=== PATIENT | female | born 1975 | race Caucasian/White ===

== ENCOUNTER 2017-09-08 14:48 | Emergency (ER) | payer OTHER ==
[2017-09-08 15:17] LABS: HCG,QUAL RESULT NEGATIVE (NEGATIVE)
[2017-09-08 15:29] LABS: BILIRUBIN,URINE Negative (NEGATIVE); COLOR,URINE Yellow (YELLOW); GLUCOSE, URINE (UA) >=1000 mg/dL (NEGATIVE); KETONES,URINE Negative (NEGATIVE); LEUKOCYTE ESTERASE ,URINE Negative (NEGATIVE); NITRATE,URINE Negative (NEGATIVE); OCCULT BLOOD,URINE Nonhemolyzed Trace (NEGATIVE); PROTEIN,URINE Negative (NEGATIVE); UROBILINOGEN,URINE 0.2 mg/dL (0.2-1.0)
[2017-09-08 15:30] LABS: APPEARANCE,URINE SLIGHTLY CLOUDY (CLEAR)
[2017-09-08 15:45] LABS: BACTERIA,URINE Few /HPF (None Seen); RBC,URINE 0-1 /HPF (0-1); WBC,URINE 0-1 /HPF (0-1)
== END 2017-09-08 16:23 | disposition home or self-care (01) ==
LOC: EDH 14:48
DX: I88.0 Nonspecific mesenteric lymphadenitis (principal); E11.9 Type 2 diabetes mellitus without complications; Z79.4 Long term (current) use of insulin
CPT/HCPCS: 74176; 81001; 81025

== ENCOUNTER 2020-05-31 13:02 | Inpatient (IN) | payer BC, OTHER ==
[~2020-05-31] VITALS: Ht 170.2 cm; Wt 108.9 kg
[2020-05-31] MEDS ORDERED: CEFTRIAXONE SODIUM 1 GM ONE (13:43)
[2020-05-31 13:48] LABS: BASOPHILS % (AUTO) 0.6 % (0.0-5.0); EOSINOPHILS % (AUTO) 0.3 % (0.0-8.0); HEMATOCRIT 34.2 % (36-48); MEAN CORPUSCULAR HEMOGLOBIN 26.7 pg (27.0-33.0); MEAN CORPUSCULAR HGB CONC 32.5 g/dL (32.0-36.0); MEAN CORPUSCULAR VOLUME 82.4 fL (79-99); MONOCYTES % (AUTO) 4.7 % (3.0-13.0); NEUTROPHILS % (AUTO) 82.8 % (40.0-77.0); PLATELET COUNT (AUTO) 373 K/uL (130-400); RED BLOOD CELL COUNT(AUTO) 4.15 MIL/uL (4.00-5.50); RED CELL DISTRIBUTION WIDTH 13.9 % (11.0-15.5)
[2020-05-31 13:53] LABS: INR 0.9 (0.85-1.15); PARTIAL THROMBOPLASTIN TIME 28.8 SEC (26.3-35.5); PROTHROMBIN TIME 9.8 SEC (9.6-11.6)
[2020-05-31 13:57] LABS: ALBUMIN 3.3 g/dL (3.5-5.0); BILIRUBIN,TOTAL 0.6 mg/dL (0.2-1.0); POTASSIUM 4.2 mmol/L (3.5-5.1); TOTAL PROTEIN, SERUM 7.4 g/dL (6.0-8.3)
[2020-05-31 14:06] LABS: APPEARANCE,URINE Clear (CLEAR); BILIRUBIN,URINE Negative (NEGATIVE); COLOR,URINE Yellow (YELLOW); GLUCOSE, URINE (UA) >=1000 mg/dL (NEGATIVE); HCG,QUAL RESULT NEGATIVE (NEGATIVE); KETONES,URINE 40 mg/dL (NEGATIVE); LEUKOCYTE ESTERASE ,URINE Negative (NEGATIVE); NITRATE,URINE Negative (NEGATIVE); OCCULT BLOOD,URINE Trace (NEGATIVE); PH,URINE 5.5 (5.0-8.0); PROTEIN,URINE POS 2+ mg/dL (NEGATIVE)
[2020-05-31 14:21] LABS: CRP QUANTITATIVE 270.6 mg/L (0.00-9.0)
[2020-05-31 14:26] LABS: BACTERIA,URINE Few /HPF (None Seen); RBC,URINE None Seen /HPF (0-1)
[2020-05-31 14:59] LABS: ERYTHROCYTE SEDIMENTATION RATE 83 MM/HR (0-20)
[2020-05-31] MEDS ORDERED: ONDANSETRON HCL 4 MG/2 ML VIAL ONE (16:24)
[2020-05-31] MEDS ORDERED: ZOSYN 3.375GM+NS 50ML 50 ML IV ONE (16:37)
[2020-05-31] MEDS ORDERED: HYDROMORPHONE HCL 0.5 MG/0.5 ML ML IVP PRN (19:15)
[2020-05-31 20:00] VITALS: BP 127/69
--- NOTE | 2020-05-31 20:20 | NUR ---
DR. LANTIGUA ROUNDED: Seen and examined pt with orders.
[2020-05-31] MEDS: ZOSYN 3.375GM+NS 50ML 50 ML IV SCH (21:35)
[2020-05-31] MEDS: INSULIN R PO SS1 SQ SCH (21:36)
[2020-05-31] MEDS ORDERED: VANCOMYCIN PROTOCOL PER PHARMACY IV SCH (22:45)
[2020-05-31] MEDS ORDERED: VANCOMYCIN 1GM+NS 250ML 250 ML IV SCH (22:45)
[2020-05-31] MEDS ORDERED: VANCOMYCIN 1GM+NS 250ML 250 ML IV ONE (23:04)
[2020-06-01] VITALS: BP 139/86
[2020-06-01 04:00] VITALS: BP 113/47
[2020-06-01] MEDS: ZOSYN 3.375GM+NS 50ML 50 ML IV SCH ×3 (05:30→20:07)
[2020-06-01 06:07] LABS: BASOPHILS % (AUTO) 0.7 % (0.0-5.0); EOSINOPHILS % (AUTO) 1.4 % (0.0-8.0); HEMATOCRIT 31.2 % (36-48); LYMPHOCYTES % (AUTO) 15.6 % (21.0-51.0); MEAN CORPUSCULAR HEMOGLOBIN 26.7 pg (27.0-33.0); MEAN CORPUSCULAR HGB CONC 32.1 g/dL (32.0-36.0); MEAN CORPUSCULAR VOLUME 83.2 fL (79-99); MONOCYTES % (AUTO) 6.4 % (3.0-13.0); NEUTROPHILS % (AUTO) 75.4 % (40.0-77.0); PLATELET COUNT (AUTO) 351 K/uL (130-400); RED BLOOD CELL COUNT(AUTO) 3.75 MIL/uL (4.00-5.50); RED CELL DISTRIBUTION WIDTH 14.1 % (11.0-15.5); WHITE BLOOD COUNT (AUTO) 11.7 K/uL (4.8-10.8)
[2020-06-01] MEDS: INSULIN R PO SS1 SQ SCH ×4 (06:27→20:01)
[2020-06-01] MEDS ORDERED: COMPOUND IV REFRIGERATED 1 EACH IVSOLN MISC PRN (06:30)
[2020-06-01 06:36] LABS: ALBUMIN 2.8 g/dL (3.5-5.0); BILIRUBIN,TOTAL 0.3 mg/dL (0.2-1.0); CREATININE 0.8 mg/dL (0.5-1.5); POTASSIUM 3.7 mmol/L (3.5-5.1)
--- NOTE | 2020-06-01 07:40 | NUR ---
DR. VALENTINE ROUNDED: Visited and talked to patient. Informed the automobile and property underwriter to cancel Infectious Disease consult. Dr. Ding has to talk to Dr. Valentine for any consult.
[2020-06-01] MEDS ORDERED: ONDANSETRON HCL 4 MG/2 ML VIAL IVP PRN (07:45)
[2020-06-01 08:00] VITALS: BP 151/78
[2020-06-01] MEDS: ENOXAPARIN SODIUM 40 MG/0.4 ML SYRINGE SQ SCH (09:05)
[2020-06-01] MEDS: VANCOMYCIN 1.25 GM in SODIUM CHLORIDE 0.9% 250 ML IV SCH ×2 (09:18→20:08)
[2020-06-01 12:00] VITALS: BP 122/65
[2020-06-01 16:00] VITALS: BP 135/85
--- NOTE | 2020-06-01 18:24 | NUR ---
cm note met with patient and states resides at home with spouse, independent with adls and ambulation, no dme. no home services, pt works inspector timers. states no dc needs. dc plan is home. Addendum: 06/01/20 at 1828 by MADISON CAT CM Amended: Links added.
--- NOTE | 2020-06-01 20:00 | NUR ---
paged doctor jose j about patient's mri results of right foot. pending call back
[2020-06-01 20:18] VITALS: BP 123/60
[2020-06-01] MEDS ORDERED: ACETAMINOPHEN 325 MG TAB ONE (20:37)
[2020-06-01] MEDS: ACETAMINOPHEN 325 MG TAB PO PRN (20:41)
--- NOTE | 2020-06-01 21:40 | NUR ---
doctor lux at the bedside speaking with the patient about the MRI results.
[2020-06-02] VITALS (18 sets, daily range): BP systolic 109–173; BP diastolic 59–94
[2020-06-02] MEDS: ZOSYN 3.375GM+NS 50ML 50 ML IV SCH ×3 (04:21→19:45)
[2020-06-02] MEDS: INSULIN R PO SS1 SQ SCH ×5 (05:50→21:58)
[2020-06-02] MEDS: ENOXAPARIN SODIUM 40 MG/0.4 ML SYRINGE SQ SCH (09:00)
[2020-06-02] MEDS: VANCOMYCIN 1.5 GM in SODIUM CHLORIDE 0.9% 250 ML IV SCH ×2 (10:35→19:46)
[2020-06-02] MEDS ORDERED: BUPIVACAINE/PF 0.5% 30ML VIAL ONE (13:47)
[2020-06-02] MEDS ORDERED: LIDOCAINE HCL 1% 20 ML VIAL ONE (13:47)
[2020-06-02] MEDS ORDERED: LIDOCAINE PF 2% 5ML ABBOJECT ONE (14:02)
[2020-06-02] MEDS ORDERED: DEXAMETHASONE SOD PHOSPHATE 10MG/ML 1ML VIAL ONE (14:02)
[2020-06-02] MEDS ORDERED: PROPOFOL 10 MG/ML 20ML VIAL IV ONE (14:03)
[2020-06-02] MEDS ORDERED: FENTANYL CITRATE PF 50 MCG/1 ML 2ML VIAL ONE (14:03)
[2020-06-02] MEDS ORDERED: ONDANSETRON HCL 4 MG/2 ML VIAL ONE (14:03)
[2020-06-02] MEDS ORDERED: MIDAZOLAM HCL 1 MG/ML 2ML VIAL ONE (14:03)
--- NOTE | 2020-06-02 17:00 | NUR ---
PT BACK IN ROOM FROM PROCEDURE RT 2ND TOE AMPUTATION COMPLETED BY DR LANTIGUA. PT IS AWAKE ALERT AND ORIENTED X 3. VITALS STABLE. STATES HAVING SLIGHT DISCOMFORT. PT IS IN BED WITH SIDE RAILS UP X3 CALL LIGHT IN REACH. WILL CONTINUE TO MONITOR PT. AT BEDSIDE.
[2020-06-02] MEDS ORDERED: MORPHINE SULFATE 2 MG/ML 1ML SYG IVP PRN (18:15)
[2020-06-02] MEDS ORDERED: HYDROMORPHONE 1 MG/1 ML AMP IVP PRN (18:15)
[2020-06-02] MEDS: ACETAMINOPHEN 325 MG TAB PO PRN (19:46)
[2020-06-03 00:31] VITALS: BP 153/78
[2020-06-03] MEDS: ZOSYN 3.375GM+NS 50ML 50 ML IV SCH ×3 (03:55→20:04)
[2020-06-03] MEDS: ACETAMINOPHEN 325 MG TAB PO PRN ×2 (03:55→09:46)
[2020-06-03 04:02] VITALS: BP 141/75
[2020-06-03] MEDS: INSULIN R PO SS1 SQ SCH ×4 (05:18→20:48)
[2020-06-03 07:30] VITALS: BP 151/71
[2020-06-03] MEDS: VANCOMYCIN 1.5 GM in SODIUM CHLORIDE 0.9% 250 ML IV SCH ×2 (09:45→22:09)
[2020-06-03] MEDS: ENOXAPARIN SODIUM 40 MG/0.4 ML SYRINGE SQ SCH (09:45)
[2020-06-03 09:47] LABS: BASOPHILS % (AUTO) 0.8 % (0.0-5.0); EOSINOPHILS % (AUTO) 1.1 % (0.0-8.0); HEMATOCRIT 33.3 % (36-48); MEAN CORPUSCULAR HEMOGLOBIN 26.2 pg (27.0-33.0); MEAN CORPUSCULAR HGB CONC 31.2 g/dL (32.0-36.0); MEAN CORPUSCULAR VOLUME 83.9 fL (79-99); MONOCYTES % (AUTO) 6.1 % (3.0-13.0); NEUTROPHILS % (AUTO) 77.3 % (40.0-77.0); PLATELET COUNT (AUTO) 380 K/uL (130-400); RED BLOOD CELL COUNT(AUTO) 3.97 MIL/uL (4.00-5.50); RED CELL DISTRIBUTION WIDTH 14.1 % (11.0-15.5); WHITE BLOOD COUNT (AUTO) 9.2 K/uL (4.8-10.8)
[2020-06-03 09:55] LABS: CREATININE 0.9 mg/dL (0.5-1.5); POTASSIUM 4.1 mmol/L (3.5-5.1)
[2020-06-03 11:00] VITALS: BP 122/61
[2020-06-03] MEDS ORDERED: INSU500I SQ (15:24)
[2020-06-03] MEDS ORDERED: LORA0.5P MC (15:26)
[2020-06-03] MEDS ORDERED: BUSP10TA3 PO (15:29)
[2020-06-03 16:00] VITALS: BP 137/69
[2020-06-03 20:00] VITALS: BP 132/78
--- NOTE | 2020-06-03 20:00 | NUR ---
ASSESSMENT AND TEACHING PATIENT AWAKE, ALERT, OX3, NO SOB, NO C/O PAIN AT THIS TIME, DRESSING RIGHT FOOT INTACT, TEACH PATIENT IMPORTANCE OF HGAIC, MEDICATION REGIMEN, FOOT CARE AND FOLLOW UP APPOINTMENTS WITH PCP , PATIENT VERBALIZES UNDERSTANDING VIA TEACH BACK
[2020-06-04] VITALS: BP 117/55
[2020-06-04 04:00] VITALS: BP 128/61
[2020-06-04] MEDS: ZOSYN 3.375GM+NS 50ML 50 ML IV SCH ×2 (04:44→13:47)
[2020-06-04 05:02] LABS: BASOPHILS % (AUTO) 0.7 % (0.0-5.0); EOSINOPHILS % (AUTO) 1.5 % (0.0-8.0); HEMATOCRIT 30.4 % (36-48); LYMPHOCYTES % (AUTO) 24.6 % (21.0-51.0); MEAN CORPUSCULAR HGB CONC 31.3 g/dL (32.0-36.0); MEAN CORPUSCULAR VOLUME 83.3 fL (79-99); MONOCYTES % (AUTO) 5.9 % (3.0-13.0); NEUTROPHILS % (AUTO) 66.1 % (40.0-77.0); PLATELET COUNT (AUTO) 298 K/uL (130-400); RED BLOOD CELL COUNT(AUTO) 3.65 MIL/uL (4.00-5.50); RED CELL DISTRIBUTION WIDTH 13.9 % (11.0-15.5); WHITE BLOOD COUNT (AUTO) 8.2 K/uL (4.8-10.8)
[2020-06-04 05:29] LABS: ALBUMIN 2.5 g/dL (3.5-5.0); BILIRUBIN,TOTAL 0.2 mg/dL (0.2-1.0); POTASSIUM 3.8 mmol/L (3.5-5.1); TOTAL PROTEIN, SERUM 6.7 g/dL (6.0-8.3)
[2020-06-04] MEDS: VANCOMYCIN 1GM+NS 250ML 250 ML IV SCH ×2 (05:58→13:47)
[2020-06-04] MEDS: INSULIN R PO SS1 SQ SCH ×2 (06:31→12:56)
[2020-06-04 08:04] VITALS: BP 161/85
[2020-06-04] MEDS: ENOXAPARIN SODIUM 40 MG/0.4 ML SYRINGE SQ SCH (08:55)
[2020-06-04] MEDS: ACETAMINOPHEN 325 MG TAB PO PRN (08:57)
[2020-06-04] MEDS ORDERED: AMOX-429 PO (09:29)
[2020-06-04 11:30] VITALS: BP 138/69
--- NOTE | 2020-06-04 12:00 | NUR ---
CM Note: [employer] pending approval CM met with pt in room, discussed MD recommendations for woundcare, pt agreeable, [facility] signed for [facility]. Faxed order and clinicals, confirmation received. Spoke to Ethel, aware dcp today, will check benefits. Pt pending approval. Primary nurse Jimmy WATKINS aware. CM to continue to follow up.
--- NOTE | 2020-06-04 14:31 | NUR ---
CM Note: [facility] not in network, pt denied; pending Dr Waldrop HH recs. CM spoke to Ethel w/ , verbalized check insurance currently not in network w/them, unable to take pt. Charge nurse Armando WATKINS made aware, will inform Dr Waldrop via secured text. Pt agreeable w/ HH recommendations. Will await MD response. CM to continue to follow up.
--- NOTE | 2020-06-04 15:45 | NUR ---
CM Note: [facility] pending approval As per Armando WATKINSrn hemodialysis charge nurse Dr Waldrop agreeable for [facility]. Faxed order and clinicals to [facility], confirmation received. Spoke to onel Rivers today, pending approval. Primary nurse Jimmy WATKINS aware. CM to continue to follow up.
--- NOTE | 2020-06-04 16:06 | NUR ---
CM Note: [facility] approval CM spoke to Tita w/[facility], pt has approval, will schedule appointment w/pt for tomorrow. Primary nurse Jimmy WATKINS aware, to give report to [facility] once pt ready to DC. Pt safe to dc via private car. CM to continue to follow up.
--- NOTE | 2020-06-04 16:34 | NUR ---
PT REVIEWED AND UNDERSTOOD DISCHARGE INSTRUCTIONS,
--- NOTE | 2020-06-04 16:43 | NUR ---
REPORT GIVEN TO [facility]. PT DISCHARGED IN GOOD CONDITION WITH NO C/O PAIN OR RESP DIFFICULTY BY W/C ACCOMPANIED BY STAFF AND FAMILY Addendum: 06/04/20 at 1645 by ZIA GOMEZ RN RN IV'S REMOVED W/O DIFFICULTY OR COMPLICATIONS
== END 2020-06-04 16:50 | disposition home health service (06) | DRG 616 ==
LOC: EDH 13:02 → OBSVTOIN 15:45 → EDHIP 15:45 → 3CH 18:36
PROVIDERS: ADMIT Internal Medicine; ATTEND Internal Medicine
PROC: 0JBQ0ZZ Excision of Right Foot Subcutaneous Tissue and Fascia, Open Approach (ICD-10-PCS; principal; 2020-05-31)
PROC: 0Y6M0ZB Detachment at Right Foot, Partial 2nd Ray, Open Approach (ICD-10-PCS; 2020-06-02)
DX: E11.69 Type 2 diabetes mellitus with other specified complication (principal); M72.6 Necrotizing fasciitis; L03.115 Cellulitis of right lower limb; L02.611 Cutaneous abscess of right foot; M86.8X7 Other osteomyelitis, ankle and foot; E11.621 Type 2 diabetes mellitus with foot ulcer; L97.519 Non-pressure chronic ulcer of other part of right foot with unspecified severity; F32.9 Major depressive disorder, single episode, unspecified; I10 Essential (primary) hypertension; E78.5 Hyperlipidemia, unspecified; L03.031 Cellulitis of right toe; B95.61 Methicillin susceptible Staphylococcus aureus infection as the cause of diseases classified elsewhere; D53.9 Nutritional anemia, unspecified; E66.01 Morbid (severe) obesity due to excess calories; Z68.37 Body mass index [BMI] 37.0-37.9, adult; Z79.4 Long term (current) use of insulin
CPT/HCPCS: 36415; 71045; 73660; 73718; 80048; 80053; 80202; 81001; 81025; 82010; 82550; 82948; 83605; 84484; 85025; 85610; 85651; 85730; 86140; 87040; 87070; 87076; 87077; 87186; 87205; 93926; G0378; J0696; J1100; J1170; J1650; J1815; J2001; J2250; J2405; J2543; J2704; J3010; J3370; J3490; J7050

== ENCOUNTER 2025-01-01 18:08 | Inpatient (IN) | payer BC, OTHER ==
[~2025-01-01] VITALS: Ht 172.7 cm; Wt 89.8 kg
[~2025-01-01 18:08] MED LIST: AMOX-429 PO; BUSP10TA3 PO; INSU500I SQ; LORA0.5P MC
--- NOTE | 2025-01-01 18:50 | HMCIMG ---
RIGHT FOOT RADIOGRAPHS - 3 VIEWS INDICATION: Great toe diabetic wound COMPARISON: None FINDINGS: AP, lateral, and oblique views. No acute fracture or subluxation identified. Amputation of the second toe phalanges. No evidence for periosteal reaction, cortical erosive changes, or any abnormal subperiosteal bone resorption. Early Charcot's midfoot joint without midfoot malalignment. Subcentimeter plantar calcaneal spur. IMPRESSION: No evidence for osteomyelitis.
[2025-01-01 20:02] LABS: BASOPHILS # (AUTO) 0.09 K/uL (0.00-0.20); BASOPHILS % (AUTO) 0.7 % (0.0-5.0); EOSINOPHILS # (AUTO) 0.18 K/uL (0.00-0.70); EOSINOPHILS % (AUTO) 1.5 % (0.0-8.0); HEMATOCRIT 40.1 % (36-48); IMMATURE GRANULOCYTE ABSOLUTE 0.06 K/uL (0-1); LYMPHOCYTES # (AUTO) 1.7 K/uL (1.0-4.8); LYMPHOCYTES % (AUTO) 13.7 % (21.0-51.0); MEAN CORPUSCULAR HEMOGLOBIN 29.2 pg (27.0-33.0); MEAN CORPUSCULAR HGB CONC 33.7 g/dL (32.0-36.0); MEAN CORPUSCULAR VOLUME 86.6 fL (79-99); MONOCYTES # (AUTO) 0.8 K/uL (0.1-1.0); MONOCYTES % (AUTO) 6.4 % (3.0-13.0); NEUTROPHILS # (AUTO) 9.6 K/uL (1.8-7.7); NEUTROPHILS % (AUTO) 77.2 % (40.0-77.0); PLATELET COUNT (AUTO) 380 K/uL (130-400); RED BLOOD CELL COUNT(AUTO) 4.63 MIL/uL (4.00-5.50); RED CELL DISTRIBUTION WIDTH 13.1 % (11.0-15.5); WHITE BLOOD COUNT (AUTO) 12.4 K/uL (4.8-10.8)
[2025-01-01 20:35] LABS: CREATININE 0.9 mg/dL (0.5-1.0)
--- NOTE | 2025-01-01 20:56 | ERN ---
ED Note History of Present Illness Stated Complaint: TOE PROBLEM Chief Complaint: Toe Pain/Injury Time Seen by MD: 18:10 Time Seen by Midlevel: 18:13 Dictation: 49-year-old female with a history of diabetes coming in with complaints of right great toe pain and wound. Patient states she has been seen by Dr. Ding in was placed on doxycycline for her wound on Monday. Denies having any fevers, nausea vomiting chest pain chest discomfort. Allergies: Coded Allergies: No Known Drug Allergies (Verified Allergy, Unknown, 01/14/14) Home Meds Reported Medications Amoxicillin/Potassium Clav (Augmentin 875-125 Tablet) 1 Each Tablet, 1 EACH PO BID, TAB 06/04/20 Buspirone HCl (Buspirone HCl) 10 Mg Tablet, 10 MG PO BID, TAB 06/03/20 Lorazepam (Lorazepam) 0.5 Gm Powder, 0.5 GM MC BID PRN for ANXIETY/AGITATION, APPL 06/03/20 Insulin Regular, Human (Humulin R U-500 Kwikpen) 500 Unit/1 Ml Insuln.pen, 5 UNIT SQ ACHS, SYRINGE 06/03/20 Past Medical History Past Medical History: Diabetes-Type II Surgical History: Cholecystectomy, Surgical History Other: 2ND TOE AMPUTATED TO BOTH FEET Review of System Dictation Constitutional: Negative for fever,chills, and weight loss Eyes: Negative for injury, pain,redness, and discharge ENT: Negative for injury,pain or swelling Cardiovascular: Negative for chest pain, palpitations, and edema Respiratory: Negative for shortness of breath, cough, and wheezing, Abdomen/GI: Negative for abdominal pain, nausea, vomiting, diarrhea, and constipation Back: Negative for injury and pain : Negative for injury, bleeding and discharge MS/Extremity: Negative for injury and deformity Skin: To the right great toe Neuro: Negative for headache, weakness, numbness, tingling, and seizure Psych: Negative for suicide ideation, homicidal ideation, and hallucinations Review of Systems: was completed Initial Vital Sign VS Vital Signs Date Time Temp Pulse Resp B/P (MAP) Pulse Ox O2 Delivery O2 Flow Rate FiO2 01/01/25 18:10 98.1 113 18 149/92 98 Room Air 01/01/25 20:12 0 21 Physical Exam Dictation General: awake, alert, NAD Head/Face: Normocephalic, atraumatic Eyes: PERRL, EOMI, vision at baseline ENT: oral cavity clear, TMs clear, no signs of infection Neck: Trachea midline, supple, no nuchal rigidity Cardiovascular: RRR, normal S1/S2, No MRGs, no JVD Respiratory: CTAB, no respiratory distress, No rales or wheezes Abdomen: Soft, non-tender, non-distended, normal bowel sounds, no guarding or rebound. Skin: There is cellulitis noted to the wide great toe MS/Extremity: Pulses equal, no cyanosis, neurovascular intact, FROM Neuro: COAx4, GCS 15, strength 5/5, CN 2-12 intact, normal cerebellar exam, normal gait, Psych: Normal behavior, mood, and affect normal Results (Laboratory/Radiology) Laboratory/Radiology Laboratory Tests Test 01/01/25 19:56 White Blood Count 12.4 K/uL (4.8-10.8) H Red Blood Count 4.63 MIL/uL (4.00-5.50) Hemoglobin 13.5 g/dL (12.0-16.0) Hematocrit 40.1 % (36-48) Mean Corpuscular Volume 86.6 fL (79-99) Mean Corpuscular Hemoglobin 29.2 pg (27.0-33.0) Mean Corpuscular Hemoglobin Concent 33.7 g/dL (32.0-36.0) Red Cell Distribution Width 13.1 % (11.0-15.5) Platelet Count 380 K/uL (130-400) Mean Platelet Volume 9.9 fL (7.5-10.5) Immature Granulocyte % (Auto) 0.5 % (0-1) Neutrophils (%) (Auto) 77.2 % (40.0-77.0) H Lymphocytes (%) (Auto) 13.7 % (21.0-51.0) L Monocytes (%) (Auto) 6.4 % (3.0-13.0) Eosinophils (%) (Auto) 1.5 % (0.0-8.0) Basophils (%) (Auto) 0.7 % (0.0-5.0) Neutrophils # (Auto) 9.6 K/uL (1.8-7.7) H Lymphocytes # (Auto) 1.7 K/uL (1.0-4.8) Monocytes # (Auto) 0.8 K/uL (0.1-1.0) Eosinophils # (Auto) 0.18 K/uL (0.00-0.70) Basophils # (Auto) 0.09 K/uL (0.00-0.20) Absolute Immature Granulocyte (auto 0.06 K/uL (0-1) Nucleated Red Blood Cells 0.0 % (0.0-0.19) Sodium Level 134 mmol/L (136-145) L Potassium Level 4.0 mmol/L (3.5-5.1) Chloride Level 99 mmol/L (101-111) L Carbon Dioxide Level 30 mmol/L (21-32) Blood Urea Nitrogen 14 mg/dL (7-18) Creatinine 0.9 mg/dL (0.5-1.0) Glomerular Filtration Rate Calc 77 mL/min (>90) Random Glucose 204 mg/dL (70-105) H Lactic Acid Level 1.2 mmol/L (0.8-2.5) Total Calcium 8.9 mg/dL (8.5-10.1) C-Reactive Protein, Quantitative 33.30 mg/L (0.5-3.0) H Labs Reviewed?: Yes ED Course ED Course Orders Procedure Category Date Status Time Cbc With Differential LAB 01/01/25 In Process 18:13 Basic Metabolic Panel LAB 01/01/25 Complete 18:13 Lactic Acid LAB 01/01/25 Complete 18:13 Erythrocyte LAB 01/01/25 In Process Sedimentation Rate 18:13 Crp Quantitative LAB 01/01/25 Complete 18:13 Foot Comp 3+Vws Rt RAD 01/01/25 Resulted 18:13 Blood Cult KELECHI 01/01/25 Logged 20:49 Mr Foot Right Wo MRI 01/01/25 Logged 20:49 Cefepime Hcl 1 Gm PHA 01/01/25 Complete Vial (Maxipime 1 Gm Vi 20:49 Vancomycin 1g/250ml PHA 01/01/25 Complete Kit (Vancomycin 1g/2 20:49 Aerobic Culture KELECHI 01/01/25 In Process 20:56 Admit Orders ADM 01/01/25 Transmitted 21:01 Current Medications Medications (Trade) Dose Ordered Sig/Kathy Route PRN Reason Start Time Stop Time Status Last Admin Dose Admin Cefepime HCl (MAXipime 1 GM vial) 1 gm ONCE STAT IVPB 01/01/25 20:49 01/01/25 20:53 DC Vancomycin HCl (Vancomycin 1g/ 250ml Kit) 1 gm ONCE STAT IV 01/01/25 20:49 01/01/25 20:54 DC Vital Signs Date Time Temp Pulse Resp B/P (MAP) Pulse Ox O2 Delivery O2 Flow Rate FiO2 01/01/25 20:12 98.1 100 16 145/88 98 Room Air* 0 21 01/01/25 18:10 98.1 113 18 149/92 98 Room Air Medical Decision Making MDM MDM: 49-year-old female with a history of diabetes coming in with complaints of right great toe pain and wound. Patient states she has been seen by Dr. Ding in was placed on doxycycline for her wound on Monday. Denies having any fevers, nausea vomiting chest pain chest discomfort.CBC shows leukocytosis of 12, no anemia, no thrombocytopenia. Chemistry shows hyperglycemia at 2:04 a.m.. Normal lactic level. C-reactive protein is 33. Dr. Ding is at bedside doing wound care and collecting a wound culture. Discussed with Dr. Ding the findings that we currently have in the blood work. Dr. Ding will like patient to be admitted and start patient on cefepime and vancomycin having MRI routinely done tomorrow. Patient does not want Dr. Waldrop, Spoke to Evi TOP FRAME [employer]ER with hospitalist . ok to admit pt. Rationale: Tests considered and ordered secondary to shared decision making include: labs, ECG and radiology Previous outside records reviewed: Old ER visits. Risk of complication and/or morbidity or mortality of patient management: None Medications-Per medication reconciliation Need for hospitalization: Patient does meet criteria for hospitalization. Need for emergency major/minor surgery: No There are no social concerns with this patient. Prescription drug management Prescriptions will include symptomatic care Patient's prior external medical records from other ER visits were reviewed by me as indicated. Prior testing and results from previous visits were reviewed. Prior tests were taken into account with medical decision making and resource utilization, independent historian/historians were used to obtain complete medical history. I independently interpreted the test that were performed, results were reviewed by me and considered findings on radiology if ordered. Medical management and examination interpretation discussions were had by me with other qualified healthcare professionals as indicated for the patient's care. DX & DISP Disposition: Inpatient Decision to Admit Date: January 01, 2025 Decision to Admit Time: 21:14 Departure Impression: Primary Impression: Cellulitis of foot, right Condition: Stable Referrals: SELF,REFERRAL (PCP) Time of Disposition: 21:14 I have reviewed the case, and I agree with, Diagnosis and Plan ALIYA SPRAGUE [employer]ER January 01, 2025 20:56
--- NOTE | 2025-01-01 21:16 | NUR ---
PT PRESENTS TO ER R GREAT TOE REDNESS AND INFLAMATION INCREASING TODAY. PT HAS BEEN A PT OF DR LANTIGUA FOR THE PAST WEEK
[2025-01-01 21:24] LABS: ERYTHROCYTE SEDIMENTATION RATE 47 MM/HR (0-30)
--- NOTE | 2025-01-01 21:53 | HP ---
[facility] HISTORY AND PHYSICAL Date of Service: January 01, 2025 Time of Service: 21:53 Supervising physicians/attending physicians: Dr. Castillo and Dr. Sophy Tinsley HISTORY OF PRESENT ILLNESS: Ms. Castro is a 49-year-old female with a history of diabetes type 2, hy pertension, chronic anemia, dyslipidemia, and amputation of 2nd great toes of bilateral feet who presented to [facility] ED for evaluation of right great toe pain and wound. Patient stated she has been seen by Dr. Ding in was placed on doxycycline for her wound on Monday. Denies having any fevers, nausea vomiting chest pain chest discomfort. CBC shows leukocytosis of 12, no anemia, no thrombocytopenia. Chemistry shows hyperglycemia. Normal lactic level. C- reactive protein is 33. Dr. Ding saw the patient, did wound care, and collecting a wound culture. Dr. Ding will like patient to be admitted and start patient on cefepime and vancomycin having MRI routinely done tomorrow. Patient does not want her PCP Dr. Waldrop and was admitted under the [facility] hospitalist team with the diagnosis of right foot cellulitis I assessed the patient at bedside in room number ED 1. The patient's breathing was even, unlabored, appeared comfortable and in no distress. Patient reports that she does not feel ill. She states that she has had sepsis in the past. I informed the patient of labs, diagnostics and plan of care she verbalized understanding and in agreement with the plan. Plan and assessment are listed below. REVIEW OF SYSTEMS 12-point ROS reviewed with the patient. All pertinent positives mentioned above. Otherwise negative, noncontributory, or nonpertinent. PAST MEDICAL HISTORY: As mentioned above PAST SURGICAL HISTORY: Cholecystectomy , amputation to 2nd toe of both feet PAST SOCIAL HISTORY: Denied alcohol, tobacco, illicit drug use Coded Allergies: No Known Drug Allergies (Verified Allergy, Unknown, 01/14/14) PHYSICAL EXAM GENERAL APPEARANCE: The patient is awake, alert, and oriented, in no acute cardiopulmonary distress. NEUROLOGICAL: Cranial nerves II-XII grossly intact. Motor is 5/5 in bilateral upper and lower extremities proximal to distal. No sensory deficits. HEENT: Face is symmetric. Pupils are equal and reactive. Extraocular movements are intact. NECK: Supple. No JVD. No thyromegaly. No submental, submandibular, pre- /postauricular, occipital or supraclavicular lymphadenopathy. CHEST: Normal chest expansion. No Telemetry. LUNGS: Absence of any rales, rhonchi or any wheezing. CARDIOVASCULAR: Regular. S1 and S2 normal. No appreciable rubs, murmurs or gallops. ABDOMEN: Soft, nontender, and nondistended. There is no rebound, voluntary guarding, or rigidity. : Deferred. No Anaya. EXTREMITIES: Right foot is covered with clean dressing. Non-edematous and not cyanotic. No clubbing. Good capillary refill. SKIN: No skin breakdown. Vital Sign (Last 24 Hours) 01/01/25 20:12 Temp 98.1 Pulse 100 Resp 16 B/P (MAP) 145/88 Pulse Ox 98 O2 Delivery Room Air* O2 Flow Rate 0 FiO2 21 LABS: Laboratory: Test 01/01/25 19:56 Range/Units White Blood Count 12.4 H 4.8-10.8 K/uL Red Blood Count 4.63 4.00-5.50 MIL/uL Hemoglobin 13.5 12.0-16.0 g/dL Hematocrit 40.1 36-48 % Mean Corpuscular Volume 86.6 79-99 fL Mean Corpuscular Hemoglobin 29.2 27.0-33.0 pg Mean Corpuscular Hemoglobin Concent 33.7 32.0-36.0 g/dL Red Cell Distribution Width 13.1 11.0-15.5 % Platelet Count 380 130-400 K/uL Mean Platelet Volume 9.9 7.5-10.5 fL Immature Granulocyte % (Auto) 0.5 0-1 % Neutrophils (%) (Auto) 77.2 H 40.0-77.0 % Lymphocytes (%) (Auto) 13.7 L 21.0-51.0 % Monocytes (%) (Auto) 6.4 3.0-13.0 % Eosinophils (%) (Auto) 1.5 0.0-8.0 % Basophils (%) (Auto) 0.7 0.0-5.0 % Neutrophils # (Auto) 9.6 H 1.8-7.7 K/uL Lymphocytes # (Auto) 1.7 1.0-4.8 K/uL Monocytes # (Auto) 0.8 0.1-1.0 K/uL Eosinophils # (Auto) 0.18 0.00-0.70 K/uL Basophils # (Auto) 0.09 0.00-0.20 K/uL Absolute Immature Granulocyte (auto 0.06 0-1 K/uL Nucleated Red Blood Cells 0.0 0.0-0.19 % Erythrocyte Sedimentation Rate 47 H 0-30 MM/HR Sodium Level 134 L 136-145 mmol/L Potassium Level 4.0 3.5-5.1 mmol/L Chloride Level 99 L 101-111 mmol/L Carbon Dioxide Level 30 21-32 mmol/L Blood Urea Nitrogen 14 7-18 mg/dL Creatinine 0.9 0.5-1.0 mg/dL Glomerular Filtration Rate Calc 77 >90 mL/min Random Glucose 204 H 70-105 mg/dL Lactic Acid Level 1.2 0.8-2.5 mmol/L Total Calcium 8.9 8.5-10.1 mg/dL C-Reactive Protein, Quantitative 33.30 H 0.5-3.0 mg/L Current Medications Medications (Trade) Dose Ordered Sig/Kathy Route PRN Reason Start Time Stop Time Status Last Admin Dose Admin Cefepime HCl (MAXipime 1 GM vial) 1 gm ONCE STAT IVPB 01/01/25 20:49 01/01/25 20:53 DC Vancomycin HCl (Vancomycin 1g/ 250ml Kit) 1 gm ONCE STAT IV 01/01/25 20:49 01/01/25 20:54 DC DIAGNOSTICS / RADIOLOGY: [ ] ASSESSMENT: Right great toe cellulitis, POA r/o osteomyelitis Uncontrolled diabetes mellitus with hyperglycemia Leukocytosis, POA Elevated C-reactive protein, POA Electrolyte derangement (hyponatremia, hypochloremia neck) Hypertension Chronic anemia Dyslipidemia Amputation 2nd great toe of bilateral feet PLAN: Admit to medical surgical floor. Consult Dr. Ding in a.m.. Dr. Ding has seen patient in ED. MRI in a.m. Continue cefepime IV and vancomycin IV per pharmacy protocol Education done on diabetes mellitus and risks of a not controlling blood glucose. P.r.n. medications for: Pain, fever, nausea, vomiting, constipation, hypertension. Monitor renal and liver function. Monitor electrolytes and treat accordingly. DVT and GI prophylaxis. Blood pressure checks every4 hours and as needed. A.m. labs. ADVANCED CARE PLANNING 1. Which of the following were discussed? Hospice Care - No Therapeutic options - Yes Advance Directives - Yes Other discussions - 2. Discussed with who? Patient 3. Voluntary nature of this service was explained to the patient? Yes 4. Amount of time spent - __ over 45 minutes 5. Reviewed by Physician? (if this service was performed by MENG) Yes This dictation was prepared using [employer] recognition software. As a result, errors may occur. When identified, these errors have been corrected. While every attempt is made to correct errors during dictation, errors may still exist. ATTESTATION BY PHYSICIAN I have seen and examined the patient. I reviewed the documentation, medical decision making, and treatment plan as noted by the mid-level provider above. I agree with the findings and plan of care. [facility] January 01, 2025 21:53
[2025-01-01] MEDS: ceFEPime HCL 1 GM VIAL IVPB STA (22:04)
[2025-01-01] MEDS: VANCOMYCIN KIT 1 GM/250 ML IV.KIT IV STA (22:04)
--- NOTE | 2025-01-01 22:56 | NUR ---
ASSUMED PT CARE AT THIS TIME
[2025-01-02] VITALS (7 sets, daily range): BP systolic 119–141; BP diastolic 62–82; PULSE 91–98; RESP 18; TEMP 97.7–98; O2SAT 99–100
--- NOTE | 2025-01-02 01:36 | NUR ---
REPORT GIVEN TO ESSENCE WATKINS
--- NOTE | 2025-01-02 03:12 | NUR ---
PENDING TO BRING HOME MEDICATIONS.
--- NOTE | 2025-01-02 03:27 | NUR ---
REPORT GIVEN TO NURSE LOUIS
[2025-01-02] MEDS ORDERED: doCUSate SODIUM 100 MG CAP PO PRN (07:00)
[2025-01-02] MEDS ORDERED: LAbetaLOL 20MG SYG IV PRN (07:00)
[2025-01-02] MEDS ORDERED: acetaMINOPHEN 650 MG SUPPOSITORY RC PRN (07:00)
[2025-01-02] MEDS ORDERED: VANCOMYCIN PROTOCOL PER PHARMACY IV SCH (07:00)
[2025-01-02] MEDS ORDERED: LACTULOSE 20 GM/30 ML UDCUP PO PRN (07:00)
[2025-01-02] MEDS ORDERED: ondanSETRON 4MG INJ IVP PRN (07:00)
[2025-01-02] MEDS ORDERED: HYDROcodone/APAP 5/325 1 TAB TABLET PO PRN ×2 (07:00)
[2025-01-02] MEDS: INSULIN humuLIN R 100 UNIT/ML 3ML SQ SCH (07:30)
[2025-01-02] MEDS: ceFEPime HCL 1 GM VIAL IVPB SCH (07:53)
[2025-01-02] MEDS: FAMOTIDINE 20MG TAB PO SCH (08:07)
[2025-01-02] MEDS: acetaMINOPHEN 325 MG TAB PO PRN (08:07)
[2025-01-02] MEDS: VANCOMYCIN 1.25 GM/250 ML BAG 250 ML IV SCH (09:57)
--- NOTE | 2025-01-02 10:16 | NUR ---
DCP: HOME Pt currently lives with her Bran Castro [phone] and her 2 young children. Pt does not have DME, home health, or provider services. Pt is able to complete her ADLs independently. Pt currently works as an bed teacher. PCP is Dr Waldrop and uses [facility] for any RX needs. At [place] pt will return home and will assist with transportation. Addendum: 01/02/25 at 1019 by ELLIOT WORRELL SS Amended: Links added.
--- NOTE | 2025-01-02 10:20 | CONS ---
HISTORY OF PRESENT ILLNESS: The patient is a very pleasant 49-year-old diabetic female who is known to me from recent outpatient encounters. I had received wound cultures today from the patient. I had taken them last Monday in my office. The wound cultures grew back Citrobacter koseri that was sensitive to the doxycycline that I had the patient on since Monday of last week. Despite this, she continues to have pain, redness and swelling to the right great toe. She is status post removal of the toenail from the right great toe and was being followed for a nail bed ulcer. REVIEW OF SYSTEMS: CONSTITUTIONAL: She is currently denying any chills, fever or night sweats. No nausea or vomiting. No diarrhea. HEENT: No problems with her eyes, ears, nose or throat. CARDIOVASCULAR: She is having no current chest pain. RESPIRATORY: No shortness of breath. GENITOURINARY: No dysuria. GASTROINTESTINAL: No dysphagia. ENDOCRINE: Diabetes. PSYCHIATRIC: Denies any depression. MUSCULOSKELETAL: She has had previous second toe amputations bilaterally. INTEGUMENT: She has an ulcer 20 x 15 mm to the nail bed of the right hallux. She has edema, erythema and localized cellulitis in an area approximately 20 mm proximal to the eponychium of the right hallux. There is no consolidated abscess formation. There is no ascending cellulitis present. The patient has had x-rays of the right foot. Results of the x-rays from the right foot were negative for any osseous destructive changes to the right great toe. The patient has Charcot arthropathy affecting the midfoot and rearfoot. On the right, she has a second toe amputation on the right. PHYSICAL EXAMINATION: VITAL SIGNS: The patient has had his T-max 98.1, pulse 100, respirations 16, blood pressure 145/88, pulse oximetry 98. EXTREMITIES: The patient's examination today, she has strongly palpable pedal pulses. Her protective sensation is decreased to her feet bilaterally. She has no ulcers to the left foot. She has a well-healed second toe amputation on the left foot. She has a well-healed second toe amputation on the right. She has a nail bed ulcer to the right hallux that is 15 x 20 x 1 to 2 mm. There is edema, erythema, and localized cellulitis 20 mm proximal to the eponychium on the right great toe. She has no nail to the right hallux. She has a nail bed ulcer. There is no abscess. No ascending cellulitis present. Reflexes diminished. Muscle strength intact. Good pedal and ankle ranges of motion with the exception of the midfoot and rearfoot on the right. LABORATORY DATA: White count 12.4, neutrophils 77.2, sed rate pending, platelets 380. The patient is currently receiving IV vancomycin and IV cefepime. ASSESSMENT: Stable Charcot arthropathy on the right status post removal of the right hallux nail with nail bed ulceration with associated cellulitis, leukocytosis, elevated neutrophils. X-rays negative for osseous destructive changes of the right great toe. Previous cultures from my office have grown back Citrobacter koseri sensitive to the doxycycline the patient has been receiving. PLAN: I discussed the case with the Emergency Room physician. My recommendation is to admit the patient to the hospital, start her on IV vancomycin and IV cefepime. I cultured the wound today. I applied a dressing of Anasept gel, I packed the wound with Vaseline gauze for drainage. Applied dressing of 4 x 4s, Kerlix, and an Grady bandage. The patient will ambulate with a surgical shoe on that right side. We will get an MRI to evaluate the patient for osteomyelitis. We will continue to follow the patient closely while in-house. TID: [id number] RECEIPT: [id number]
--- NOTE | 2025-01-02 12:01 | PN ---
SUBJECTIVE: The patient of mine, who was recently seen in my office on 12/23/2024 complaining of influenza symptoms. The patient refers that when she came to the Emergency Room, she wanted to be seen by Dr. Ding, supervisor [employer], and she did not think that I needed to be called to follow her. She did not mention that did not wanted to be seen by me. She is okay to continue with my services. I asked her in the presence of the charge nurse and she agreed on continuing with services with me. She denies any fever or chills. No chest pain or palpitations, but complaining of hacking cough with minimal amount of a sputum. Denies any chest pain or palpitations. No nausea or vomiting. Referred that the erythema and edema of the left foot has decreased. OBJECTIVE: GENERAL: She is currently awake, alert, oriented in person, time, and place, not in distress. VITAL SIGNS: In the chart. HEENT: Normocephalic and atraumatic. LUNGS: Clear to auscultation. HEART: S1, S2 are distant. ABDOMEN: Soft and nontender. EXTREMITIES: No clubbing or cyanosis. Left foot covered with surgical gauzes. LABORATORY AND IMAGING DATA: WBC count 12.4 yesterday, hemoglobin 13.5, platelets 380. Sodium 134, potassium 4, BUN 14, creatinine 0.9. Random glucose 204. Foot x-ray was reported as no evidence of osteomyelitis. ASSESSMENT AND PLAN: * Left first toe cellulitis, concern for osteomyelitis. We are going to continue with current plans. She will continue with antibiotics, is scheduled for an MRI, reassess with results. Continue recommendations by Dr. Ding. * Type 2 diabetes. Continue current treatment. * Hypertension. Continue current therapy. * Dyslipidemia. Continue current treatment. * Status post second toe amputation bilaterally. * Follow up in a.m. with results of tests. Charge nurse was informed of the patient's decision and was to notify Dr. Castillo about the change in attending. TID: [id number] RECEIPT: [id number]
[2025-01-02] MEDS: BENZONATATE 100 MG CAPSULE PO PRN (12:02)
[2025-01-02] MEDS ORDERED: INSU300I SQ (12:07)
[2025-01-02] MEDS ORDERED: TIRZ15PE SQ (12:07)
--- NOTE | 2025-01-02 20:25 | NUR ---
MEDS SHIFT ASSESSMENT DONE, PLEASE REFER TO CHART. PT VERBALIZES OF HAVING DRY COUGH. PT IN NO RESPIRATORY DISTRESS, BREATHING WITH EASE ON RA. DUE MEDS ADMINISTERED, TOLERATED WELL. KEPT RESTED AND COMFORTABLE IN BED. CALL LIGHT WITHIN REACH.
[2025-01-03] VITALS (10 sets, daily range): BP systolic 125–170; BP diastolic 50–93; PULSE 75–98; RESP 16–22; TEMP 97.4–98.1; O2SAT 98–100
[2025-01-03] MEDS ORDERED: CETI10TA57 PO (00:44)
[2025-01-03 04:50] LABS: MEAN CORPUSCULAR HEMOGLOBIN 29.3 pg (27.0-33.0); MEAN CORPUSCULAR HGB CONC 33.5 g/dL (32.0-36.0); MEAN CORPUSCULAR VOLUME 87.5 fL (79-99); RED BLOOD CELL COUNT(AUTO) 4.23 MIL/uL (4.00-5.50); WHITE BLOOD COUNT (AUTO) 8.3 K/uL (4.8-10.8)
[2025-01-03 05:01] LABS: CREATININE 0.8 mg/dL (0.5-1.0); MAGNESIUM 1.7 mg/dL (1.80-2.40); PHOSPHORUS 3.2 mg/dL (2.5-4.9); POTASSIUM 3.6 mmol/L (3.5-5.1)
--- NOTE | 2025-01-03 06:11 | PN ---
SUBJECTIVE: The patient is 49 years old, diabetic, white count 8.3, H and H 12.4 and 37.0. BUN and creatinine 11 and 0.8, magnesium 1.7, potassium 3.6. The patient is currently receiving IV vancomycin and IV cefepime. She has blood cultures no growth. Wound cultures are pending. She has had an x-ray of her right foot showing no evidence of osteomyelitis to the right great toe. She has an MRI that is pending. She states her pain is less, her swelling is less to the right great toe. Denies any chills, fevers, night sweats, nausea, vomiting, or diarrhea. REVIEW OF SYSTEMS: HEENT: No problems with eyes, ears, nose, or throat. CARDIOVASCULAR: Having no current chest pain. PULMONARY: No shortness of breath. GENITOURINARY: No dysuria. GASTROINTESTINAL: No dysphagia. ENDOCRINE: Diabetes. PSYCHIATRIC: Denied any depression. MUSCULOSKELETAL: She has a previous second toe amputations bilateral. INTEGUMENT: She has ulcers in the nail bed of the right hallux that is 15 x 20 mm, 1 mm in depth. There is decreased edema and decreased erythema. There is no evidence of any abscess formation. There is no ascending cellulitis. PHYSICAL EXAMINATION: Strongly palpable pedal pulses. Protective sensation is decreased. She has no ulcers to the left foot. She has bilateral healed second toe amputations. On the right foot, she has an ulcer 15 x 20 x 1-2 mm. There is mild edema. There is no abscess, no ascending cellulitis. ASSESSMENT: She has stable Charcot arthropathy on the right at the rearfoot. She has had a removal of the right hallux nail with a nail bed ulcer with associated cellulitis, leukocytosis, elevated neutrophils, all improving. X-ray is negative. MRI pending. The patient is receiving vancomycin and cefepime in office. Cultures grew back Citrobacter koseri, sensitive to the outpatient antibiotics, the doxycycline the patient had been receiving. PLAN: We are awaiting the results of the MRI. We will continue with local wound care with Anasept Gel dressings with Vaseline gauze. The patient may ambulate with a surgical shoe. Continue to follow the patient closely while in-house. TID: [id number] RECEIPT: [id number]
--- NOTE | 2025-01-03 06:15 | NUR ---
MD DR LANTIGUA IN TO SEE PT. CHANGED PT'S WOUND DRESSING TO RT FOOT. NO NEW ORDERS GIVEN. STATED WILL AWAIT MRI RESULTS.
--- NOTE | 2025-01-03 17:05 | HMCIMG ---
Exam Type: MR FOOT RIGHT WO Clinical Information: r/o osteomyelitis Comparison: None Technique: Multiecho multiplanar sequences are done without contrast administration. FINDINGS: There is high signal intensity of the marrow of the proximal distal phalanges of the first toe consistent with osteomyelitis, with presumed interphalangeal joint septic arthritis. No other areas of marrow edema are seen. There are no fractures. There are no areas of bone destruction elsewhere. Soft tissue evaluation demonstrates increased fluid consistent with cellulitis or swelling. No fluid collections are noted to suggest abscess formation. IMPRESSION: Findings consistent with osteomyelitis and septic arthritis as noted.
[2025-01-03] MEDS: IpraTROPium/alBUTERol SULFATE 3 ML SOLUTION IH SCH (18:00)
--- NOTE | 2025-01-03 19:45 | NUR ---
MEDS SHIFT ASSESSMENT DONE, PLEASE REFER TO CHART. NOTED PT'S PIV TO BE INFILTRATED. DISCONTINUED PIV WITH CATHETER INTACT. RE-INSERTED PIV G22 TO LFA, TOLERATED WELL. CONTINUED IV VANCO INFUSION. KEPT RESTED AND COMFORTABLE IN BED. CALL LIGHT WITHIN REACH.
[2025-01-04] MEDS: TEMAZepam 15 MG CAPSULE PO PRN (00:11)
--- NOTE | 2025-01-04 00:11 | NUR ---
SLEEP PT IS STILL AWAKE AND CLAIMS OF INABILITY TO SLEEP. MEDICATED WITH SLEEPING MED. KEPT WARM AND COMFORTABLE. CALL LIGHT WITHIN REACH.
--- NOTE | 2025-01-04 04:36 | PN ---
SUBJECTIVE: The patient is still pending MRI to be done. OBJECTIVE: GENERAL: She is currently awake, alert, and oriented in person, time, and place. Not in distress. VITAL SIGNS: In the chart. HEENT: Normocephalic, atraumatic. PERRLA. [place] and moist oral mucosa. NECK: Supple. No jugular venous dilation. No carotid bruit. No goiter. LUNGS: Clear to auscultation. HEART: S1, S2 are distant. ABDOMEN: Soft, nontender. EXTREMITIES: Right foot covered with surgical gauzes. LABORATORY DATA: WBC count 8.3, hemoglobin 12.4, platelets 328. Sodium 140, potassium 3.6, BUN 11, creatinine is 0.8. ASSESSMENT AND PLAN: * Left first toe cellulitis. Continue current antibiotics. Pending MRI results to rule out osteomyelitis. * Type 2 diabetes. Continue current treatment. * Hypertension, controlled. Continue current treatment. * Dyslipidemia, controlled. Continue current therapy. * Follow up in a.m. with labs. TID: [id number] RECEIPT: [id number]
[2025-01-04 06:15] LABS: HEMATOCRIT 36.9 % (36-48); MEAN CORPUSCULAR HEMOGLOBIN 29.4 pg (27.0-33.0); MEAN CORPUSCULAR HGB CONC 33.9 g/dL (32.0-36.0); MEAN CORPUSCULAR VOLUME 86.8 fL (79-99); RED BLOOD CELL COUNT(AUTO) 4.25 MIL/uL (4.00-5.50); RED CELL DISTRIBUTION WIDTH 12.9 % (11.0-15.5); WHITE BLOOD COUNT (AUTO) 7.6 K/uL (4.8-10.8)
--- NOTE | 2025-01-04 06:23 | NUR ---
MEDS PT STILL SLEEPY BUT NO DISTRESS NOTED. NO CONCERNS VERBALIZED. DUE IV CEFEPIME HUNG. KEPT COMFORTABLE IN BED. FOR MORE CARE.
[2025-01-04 06:30] LABS: CREATININE 0.7 mg/dL (0.5-1.0); MAGNESIUM 1.8 mg/dL (1.80-2.40); POTASSIUM 3.8 mmol/L (3.5-5.1)
[2025-01-04 07:09] VITALS: PULSE 110; RESP 18; O2SAT 98
[2025-01-04 08:08] VITALS: BP 140/80; PULSE 102; RESP 22; TEMP 97.7
[2025-01-04 09:15] VITALS: O2SAT 98
--- NOTE | 2025-01-04 11:13 | PN ---
SUBJECTIVE: Very pleasant 49-year-old diabetic [place] female, afebrile. White count within normal limits. Currently receiving IV vancomycin and IV cefepime. The patient has cultures that have grown back Citrobacter koseri. The patient had an MRI, which showed evidence of osteomyelitis of the distal and proximal phalanx of the right great toe. She is having less pain and swelling to the right great toe. REVIEW OF SYSTEMS: CONSTITUTIONAL: She is denying any constitutional symptoms. GASTROINTESTINAL: No problems with her eyes, ears, nose or throat. CARDIOVASCULAR: Having no current chest pain. Strongly palpable pedal pulses clinically. PULMONARY: No shortness of breath. GENITOURINARY: No dysuria. GASTROINTESTINAL: No dysphagia. ENDOCRINE: Diabetes. PSYCHIATRIC: Denied any depression. MUSCULOSKELETAL: She has had previous second ray amputations bilaterally. She has an ulcer to the nail bed of the right hallux, 10 x 15 mm, 1 mm depth, decreased edema, decreased erythema. No abscess. No ascending cellulitis. OBJECTIVE: Examination today, strongly palpable pedal pulses. Protective sensation is decreased. She has no ulcers to the left foot. Bilateral second toe amputations that are healed. On the right foot, she has an ulcer that is 15 x 20 x 1-2 mm. There is mild edema, mild erythema to that right great toe. ASSESSMENT: The patient with stable Charcot arthropathy to the right foot. At the rearfoot level, she has had removal of the right hallux nail. She has a nail bed ulcer with associated cellulitis, resolved leukocytosis, resolved elevated neutrophils. Her x-ray findings were negative. MRI showing osteomyelitis of the distal as well as the proximal phalanx of the right great toe. The patient is currently receiving vancomycin and cefepime for cultures that have grown back Citrobacter koseri. PLAN: I discussed the condition with the patient and her . I reviewed treatment options, both conservative and surgical. The patient and her are requesting evaluation for antibiotic therapy to treat the osteomyelitis to the right great toe. I will notify Dr. Waldrop, the primary care physician, that the patient and family are requesting evaluation for long-term antibiotic therapy to treat the osteomyelitis to the right great toe. With the patients consent, I blocked the right great toe with 5 cc 1% lidocaine plain, with the use of a 15 scalpel and forcep, I performed a sharp excisional debridement of hemorrhagic skin and subcutaneous tissues down to and including subcutaneous tissues in an area that measure 15x20 x 1 mm pre debridement and 20x25 x 3 mm post debridment, total area debrided 5 cmm squared ,blood loss 1.5 cc patient tolerated the aneasthesia and debridement well and had no pain and I cleaned the right great toe and dressed it with Vaseline gauze and Anasept gel. The patient may ambulate with a surgical shoe on that right side. We will plan for discharge with oral antibiotics prescride by dr Waldrop ,oral levaquin and I filled out a reurn to work excuse for the patient. TID: [id number] RECEIPT: [id number] MTD
[2025-01-04 12:00] VITALS: BP 137/88; PULSE 98; RESP 22; TEMP 97.6
--- NOTE | 2025-01-04 12:30 | NUR ---
discharge Spoke and informed Dr Ding regarding Dr Emerson recommendations and patient being able to be discharged home. As per Dr Ding hold patinient that he is going to round and personally discuss the plan of care with patient.
--- NOTE | 2025-01-04 15:51 | NUR ---
PATIENT DISCHARGED. PERIPHERAL IV DISCONTINUED WITHOUT COMPLICATIONS. CATHETER INTACT. PRESCRIPTIONS GIVEN. PATIENT AWARE TO F/U WITH DR. VALENTINE ON SATURDAY 01/06 AND F/U WITH DR. LANTIGUA ON FRIDAY 01/05. ALL QUESTIONS ANSWERED.
--- NOTE | 2025-01-07 14:52 | NUR ---
Transitional Phone Call Attempted to call twice, left message and no return call.
== END 2025-01-04 15:52 | disposition home or self-care (01) | DRG 638 ==
LOC: EDH 18:08 → EDHIP 21:01 → 3CH 01-02 03:40
PROVIDERS: ADMIT Internal Medicine; ATTEND Internal Medicine
DX: E11.69 Type 2 diabetes mellitus with other specified complication (principal); E87.1 Hypo-osmolality and hyponatremia; M86.8X7 Other osteomyelitis, ankle and foot; L03.031 Cellulitis of right toe; L03.032 Cellulitis of left toe; E11.610 Type 2 diabetes mellitus with diabetic neuropathic arthropathy; I10 Essential (primary) hypertension; D64.9 Anemia, unspecified; E11.65 Type 2 diabetes mellitus with hyperglycemia; E78.5 Hyperlipidemia, unspecified; E87.8 Other disorders of electrolyte and fluid balance, not elsewhere classified; R79.82 Elevated C-reactive protein (CRP); K59.00 Constipation, unspecified
CPT/HCPCS: 36415; 73630; 73718; 80048; 80202; 82948; 83605; 83735; 84100; 85025; 85027; 85651; 86140; 87040; 87070; 87086; 87186; 94664; 96374; 99285; G0378; J0692; J1815; J3370; 3370